=== PATIENT | male | born 1980 | race Caucasian/White ===

== ENCOUNTER 2019-05-24 06:30 | Emergency (ER) | payer MEDICAID ==
[~2019-05-24] VITALS: Ht 175.3 cm; Wt 99.8 kg
[2019-05-24 06:30] VITALS: BP 168/68
[2019-05-24] MEDS: KETOROLAC TROMETH 60MG/2ML VIAL IM ONE (09:54)
== END 2019-05-24 10:03 | disposition home or self-care (01) ==
LOC: ER 06:30 → EDBD 06:30 → ER 10:00
DX: G44.209 Tension-type headache, unspecified, not intractable (principal); F17.210 Nicotine dependence, cigarettes, uncomplicated
CPT/HCPCS: 70450; 96372; 99284; J1885

== ENCOUNTER 2020-12-11 02:30 | Emergency (ER) | payer MEDICAID ==
[~2020-12-11] VITALS: Ht 172.7 cm; Wt 83.9 kg
[2020-12-11 04:10] VITALS: BP 140/88
[2020-12-11] MEDS ORDERED: ACETAMINOPHEN 500 MG TAB PO ONE (04:30)
== END 2020-12-11 06:32 | disposition home or self-care (01) ==
LOC: EDBD 02:30 → ER 02:30
DX: M25.511 Pain in right shoulder (principal); M25.512 Pain in left shoulder; T50.B95A Adverse effect of other viral vaccines, initial encounter; F17.210 Nicotine dependence, cigarettes, uncomplicated; Y92.89 Other specified places as the place of occurrence of the external cause

== ENCOUNTER 2021-02-25 06:55 | Emergency (ER) | payer MEDICAID ==
[~2021-02-25] VITALS: Ht 175.3 cm; Wt 86.2 kg
[2021-02-25 09:43] VITALS: BP 137/80
== END 2021-02-25 10:24 | disposition home or self-care (01) ==
LOC: EDBD 06:55 → ER 06:55
DX: S93.402A Sprain of unspecified ligament of left ankle, initial encounter (principal); I10 Essential (primary) hypertension; F17.210 Nicotine dependence, cigarettes, uncomplicated; W01.0XXA Fall on same level from slipping, tripping and stumbling without subsequent striking against object, initial encounter; Y93.89 Activity, other specified; Y92.89 Other specified places as the place of occurrence of the external cause; Y99.8 Other external cause status
CPT/HCPCS: 73610

== ENCOUNTER 2021-06-20 23:31 | Emergency (ER) | payer MEDICAID ==
[~2021-06-20] VITALS: Ht 175.3 cm; Wt 99.8 kg
[2021-06-21] MEDS ORDERED: IOHEXOL 300 MG/ML 100ML BOTTLE IJ ONE ×2 (00:49→05:00)
[2021-06-21 02:40] LABS: Basophils # (auto) 0 10 ^3/uL (0-0.2); Basophils % (auto) 0.4 % (0.0-2.0); Eosinophils # (auto) 0.1 10 ^3/uL (0-0.8); Eosinophils % (auto) 0.9 % (0.0-7.0); Hematocrit 46.8 % (41.0-53.0); Hemoglobin 16.7 g/dL (13.5-17.5); Lymphocytes # (auto) 1.4 10 ^3/uL (0.4-5.4); Lymphocytes % (auto) 12.8 % (10.0-50.0); Mean Corpuscular Hemoglobin 30.9 pg (28.0-32.0); Mean Corpuscular Hgb Conc. 35.7 g/dL (32.0-36.0); Mean Corpuscular Volume 86.5 fL (80.0-100.0); Monocytes # (auto) 0.6 10 ^3/uL (0-1.3); Monocytes % (auto) 5.6 % (0.0-12.0); Neutrophils # (auto) 8.6 10 ^3/uL (1.6-8.6); Neutrophils % (auto) 80.3 % (37.0-80.0); Nucleated Red Blood Cells % 0.2 %; Red Cell Distribution Width 13.5 % (11.8-14.3); White Blood Cell 10.8 10^3/uL (4.4-10.8)
[2021-06-21 02:57] LABS: Albumin 3.9 g/dL (3.4-5.0); Calcium 8.9 mg/dL (8.5-10.1); Potassium 3.7 mmol/L (3.5-5.1)
[2021-06-21 03:00] LABS: BUN/Creatinine Ratio 11.7; Magnesium 2.3 mg/dL (1.6-2.6)
[2021-06-21 03:02] LABS: Bilirubin, Total 0.5 mg/dL (0.2-1.0); Total Protein 7.5 g/dL (6.4-8.2)
[2021-06-21 03:53] LABS: Urine Bacteria FEW /hpf (None Seen); Urine Blood Negative /uL (Negative); Urine Mucus FEW (None Seen); Urine Specific Gravity 1.023 (1.001-1.035); Urine WBC 2 /hpf (0 - 3)
[2021-06-21 04:10] LABS: Alcohol, Urine < 3.0 mg/dL (0-10); Barbiturate Scree,Urine NEGATIVE (NEGATIVE); Benzodiazephine Screen, Urine NEGATIVE (NEGATIVE); Cannabinoid Screen, Urine POSITIVE (NEGATIVE); Cocaine Screen, Urine NEGATIVE (NEGATIVE); Opiate Scree,Urine NEGATIVE (NEGATIVE); Phencyclidine Screen, Urine NEGATIVE (NEGATIVE)
[2021-06-21 04:18] LABS: Amphetamine Screen, Urine NEGATIVE (NEGATIVE)
[2021-06-21] MEDS ORDERED: SODIUM CHLORIDE 0.9% 500 ML IVB ONE (07:15)
[2021-06-21] MEDS ORDERED: SODIUM CHLORIDE 0.9% 1,000 ML IV ONE (07:15)
[2021-06-21] MEDS ORDERED: MORPHINE SULFATE INJECTION 2 MG/ML SYRG IV ONE (09:15)
[2021-06-21] MEDS ORDERED: ONDANSETRON HCL 4 MG/2 ML VIAL IV ONE (09:15)
[2021-06-21] MEDS ORDERED: GASTROGRAFIN 120 ML SOL ONE (09:52)
[2021-06-21 11:30] VITALS: BP 125/90
== END 2021-06-21 14:52 | disposition left against medical advice (07) ==
LOC: EDUNIT# 23:31 → EDBD 23:31 → ER 23:31
DX: K52.9 Noninfective gastroenteritis and colitis, unspecified (principal); K56.609 Unspecified intestinal obstruction, unspecified as to partial versus complete obstruction; F31.9 Bipolar disorder, unspecified; F17.210 Nicotine dependence, cigarettes, uncomplicated
CPT/HCPCS: 36415; 71046; 74177; 74250; 80053; 80307; 81001; 83690; 83735; 84443; 85025; 93005; 96361; 96374; 96375; 99285; J2270; J2405; J7030; J7040; Q9963; Q9967

== ENCOUNTER 2022-05-04 18:10 | Emergency (ER) | payer MEDICAID ==
[~2022-05-04] VITALS: Ht 175.3 cm; Wt 109.0 kg
[2022-05-04] MEDS ORDERED: CEPH-510 PO (21:02)
[2022-05-04 21:40] VITALS: BP 154/113
== END 2022-05-04 21:48 | disposition home or self-care (01) ==
LOC: EDBD 18:10 → ER 18:13
DX: L03.116 Cellulitis of left lower limb (principal); F41.9 Anxiety disorder, unspecified; F32.9 Major depressive disorder, single episode, unspecified; I10 Essential (primary) hypertension; F17.210 Nicotine dependence, cigarettes, uncomplicated

== ENCOUNTER 2023-09-11 19:49 | Emergency (ER) | payer MEDICAID ==
[~2023-09-11] VITALS: Ht 175.3 cm; Wt 104.3 kg
[~2023-09-11 19:49] MED LIST: CEPH-510 PO
[2023-09-11 20:22] LABS: Basophils # (auto) 0 10 ^3/uL (0-0.2); Basophils % (auto) 0.2 % (0.0-2.0); Eosinophils # (auto) 0 10 ^3/uL (0-0.8); Eosinophils % (auto) 0.5 % (0.0-7.0); Hematocrit 48.3 % (41.0-53.0); Hemoglobin 16.5 g/dL (13.5-17.5); Lymphocytes # (auto) 1.4 10 ^3/uL (0.4-5.4); Lymphocytes % (auto) 14.1 % (10.0-50.0); Mean Corpuscular Hemoglobin 30.1 pg (28.0-32.0); Mean Corpuscular Hgb Conc. 34.2 g/dL (32.0-36.0); Mean Corpuscular Volume 88.1 fL (80.0-100.0); Monocytes # (auto) 0.5 10 ^3/uL (0-1.3); Monocytes % (auto) 5.5 % (0.0-12.0); Neutrophils % (auto) 79.7 % (37.0-80.0); Nucleated Red Blood Cells % 0.2 %; Red Blood Cells 5.48 10^6/uL (4.5-5.90); Red Cell Distribution Width 14.2 % (11.8-14.3); White Blood Cell 10.1 10^3/uL (4.4-10.8)
[2023-09-11] MEDS: MECLIZINE HCL 25 MG TAB PO ONE (20:27)
[2023-09-11] MEDS: ONDANSETRON ODT 4 MG TAB PO ONE (20:27)
[2023-09-11 20:31] LABS: Chloride 108 mmol/L (98-107); Potassium 3.4 mmol/L (3.5-5.1); Sodium 140 mmol/L (136-145)
[2023-09-11 20:32] LABS: Anion Gap 3 (5-15); Carbon Dioxide 29 mmol/L (20-30)
[2023-09-11 20:33] LABS: Calcium 9.6 mg/dL (8.5-10.1)
[2023-09-11 20:37] LABS: Glucose 95 mg/dL (74-106)
[2023-09-11 20:38] LABS: BUN/Creatinine Ratio 9.4 (10.0-20.0); Blood Urea Nitrogen 9 mg/dL (9-23)
[2023-09-11] MEDS ORDERED: MECL12.586 PO (22:04)
[2023-09-11] MEDS ORDERED: ZOFR4T PO (22:04)
[2023-09-11 22:38] VITALS: BP 143/88; PULSE 71; RESP 18; O2SAT 96
== END 2023-09-11 22:38 | disposition home or self-care (01) ==
LOC: ER 19:49 → EDBD 19:49 → ER 22:38
DX: H81.10 Benign paroxysmal vertigo, unspecified ear (principal); I10 Essential (primary) hypertension; F41.9 Anxiety disorder, unspecified; F32.9 Major depressive disorder, single episode, unspecified; F17.210 Nicotine dependence, cigarettes, uncomplicated; Z79.899 Other long term (current) drug therapy
CPT/HCPCS: 36415; 70450; 80048; 85025; 93005; 99284; J8597; Q0162